=== PATIENT | male | born 1995 | race Asian ===

== ENCOUNTER 2019-01-03 20:45 | Emergency (ER) | payer OTHER ==
[~2019-01-03] VITALS: Ht 167.6 cm; Wt 81.8 kg
[2019-01-03] MEDS ORDERED: CYCLOBENZAPRINE 10 MG TAB PO ONE (22:15)
[2019-01-03] MEDS ORDERED: ACETAMINOPHEN TAB 650MG DOSE (2X325MG) PO ONE (22:15)
[2019-01-03] MEDS ORDERED: oxyCODONE 5MG TAB PO ONE (23:15)
--- NOTE | 2019-01-03 23:16 | REPVR ---
EXAM: US Duplex Left Lower Extremity Veins, Limited EXAM DATE/TIME: 01/03/2019 10:51 PM CLINICAL HISTORY: 23 years old, male; Pain; Leg, upper and leg, lower; Left; Additional info: Lle pain TECHNIQUE: Imaging protocol: Real-time Duplex ultrasound of the Left Lower Extremity with 2-D lala scale, color Doppler flow and spectral waveform analysis. Limited exam focused on the left lower extremity veins. COMPARISON: No relevant prior studies available. FINDINGS: Left deep veins: Unremarkable. The common femoral, femoral, proximal profunda femoral and popliteal veins are patent without thrombus. Normal Doppler waveforms. Normal compressibility and/or augmentation response. Soft tissues: Unremarkable. IMPRESSION: No acute findings. No evidence of deep vein thrombosis. Electronically signed by: Chapincito Schulte On 01/03/2019 23:16:32 PM
[2019-01-04] MEDS ORDERED: CYCL5TAB PO (00:01)
[2019-01-04] MEDS ORDERED: IBUP80TA PO (00:01)
[2019-01-04 00:54] VITALS: BP 162/84
[2019-01-05] MEDS ORDERED: MEDR4TAB PO (19:43)
== END 2019-01-04 00:55 | disposition home or self-care (01) ==
LOC: M ED 20:45
DX: M62.830 Muscle spasm of back (principal); M79.605 Pain in left leg; I10 Essential (primary) hypertension; J45.909 Unspecified asthma, uncomplicated

== ENCOUNTER 2019-01-05 16:22 | Emergency (ER) | payer OTHER ==
[~2019-01-05] VITALS: Ht 167.6 cm; Wt 81.8 kg
[~2019-01-05 16:22] MED LIST: CYCL5TAB PO; IBUP80TA PO
[2019-01-05 17:09] LABS: HEMATOCRIT 47.1 % (42.0-52.0); HEMOGLOBIN 15.7 g/dl (13.5-17.5); MEAN CORPUSCULAR HEMOGLOBIN 29.2 pg (27.0-33.0); MEAN CORPUSCULAR HGB CONC 33.3 g/dl (32.0-36.5); MEAN CORPUSCULAR VOLUME 87.7 fl (80.0-96.0); PLATELET COUNT, AUTOMATED 254 10^3/uL (150-450); RED BLOOD COUNT 5.37 10^6/uL (4.30-6.10); WHITE BLOOD COUNT 9.6 10^3/uL (4.0-10.0)
[2019-01-05 17:29] LABS: BLOOD UREA NITROGEN 11 MG/DL (7-18); CALCIUM LEVEL 8.9 MG/DL (8.5-10.1); CARBON DIOXIDE LEVEL 29 MEQ/L (21-32); CHLORIDE LEVEL 107 MEQ/L (98-107); CREATININE FOR GFR 0.85 MG/DL (0.70-1.30); GLOMERULAR FILTRATION RATE > 60.0 (>60); GLUCOSE, FASTING 85 MG/DL (70-100); NT-PRO BNP 7 PG/ML (<125); POTASSIUM SERUM 4.5 MEQ/L (3.5-5.1); SODIUM LEVEL 143 MEQ/L (136-145)
[2019-01-05] MEDS ORDERED: ISOVUE-370 76% 100ML VIAL (Q9967) As Ordered ONE (17:37)
--- NOTE | 2019-01-05 18:02 | REP ---
Clinical: Acute chest pain and cough . Technique: Axial contrast enhanced images from the thoracic inlet to the upper abdomen using 100 ml Isovue 370 intravenous contrast material with coronal and sagittal re-formations. Findings: Satisfactory enhancement of the pulmonary vasculature is achieved and no filling defects are identified to suggest pulmonary embolus. Thoracic aorta is normal caliber without aneurysm or dissection. Heart and pericardium are normal. Bilateral lung dee are well aerated and clear without acute pulmonary parenchymal consolidation or atelectasis. No nodule or mass lesion. No pleural effusion/reaction. No pneumothorax. No adenopathy. Impression: Normal noncontrast head CT. No evidence for acute intracranial pathology or trauma/injury. Electronically Signed by Brandyn Saleh MD 01/05/2019 05:53 P
[2019-01-05 18:33] LABS: CPK CREATINE PHOSPHOKINASE 229 U/L (39-308); MB/CK RELATIVE INDEX 0.57 (< OR =4); TROPONIN I < 0.02 NG/ML (< 0.10)
[2019-01-05] MEDS ORDERED: MEDR4TAB PO (19:43)
[2019-01-05] MEDS ORDERED: methylPREDNISolone SUSP 40 MG/ML (DEPO-medrol) VIAL (J1030) IM ONE (19:45)
--- NOTE | 2019-01-05 20:05 | ECGEPIP ---
[facility] - ED Test Date: 2019-01-05 Pat Name: YUVAL JERONIMO Department: Room: - Gender: Male [employer]: pretty : 1995 Requested By: REGINE Luu Order Number: [id number] Reading MD: Manoj Yusuf Measurements Intervals [place] Rate: 71 P: 62 OK: 171 QRS: 57 QRSD: 89 T: 33 QT: 368 QTc: 401 Interpretive Statements SINUS RHYTHM ST ELEVATION, PROBABLY EARLY REPOLARIZATION Electronically Signed on 01-05-2019 20:04:57 EDT by Manoj Yusuf
[2019-01-05 20:15] VITALS: BP 134/70
[2019-01-06] MEDS ORDERED: ALBU17IN2 INH (11:39)
== END 2019-01-05 20:17 | disposition home or self-care (01) ==
LOC: M ED 16:22 → EDBD 16:22 → M ED 20:17
DX: R06.02 Shortness of breath (principal); R05 Cough; M54.32 Sciatica, left side; R94.31 Abnormal electrocardiogram [ECG] [EKG]; Z87.09 Personal history of other diseases of the respiratory system; Z79.899 Other long term (current) drug therapy
CPT/HCPCS: 71275; 80048; 82550; 82553; 83880; 84484; 85027; 93005; 96372; 99284; J1030; Q9967

== ENCOUNTER 2019-01-06 10:07 | Emergency (ER) | payer OTHER ==
[~2019-01-06] VITALS: Ht 167.6 cm; Wt 82.7 kg
[~2019-01-06 10:07] MED LIST changes: +MEDR4TAB PO
[2019-01-06] MEDS ORDERED: ALBU17IN2 INH (11:39)
[2019-01-06 11:53] VITALS: BP 167/96
== END 2019-01-06 12:00 | disposition home or self-care (01) ==
LOC: M ED 10:07
DX: M54.42 Lumbago with sciatica, left side (principal); M62.830 Muscle spasm of back; Z79.899 Other long term (current) drug therapy

== ENCOUNTER → 2019-02-08 | Outpatient (CLI) | payer OTHER ==
[~2019-02-08] MED LIST changes: +PROV108A INH
--- NOTE | 2019-02-08 09:04 | REP ---
Clinical: Hypertension and chronic medical renal disease. Technique: Gil scale and color Doppler evaluation of the kidneys and renal vasculature using curved array transducer. Findings: The kidneys are essentially normal in contour size and echogenicity and reniform shape without hydronephrosis, nephrolithiasis, cystic or renal mass lesion. Right kidney measures 11.3 x 5.9 x 5.5 cm. Left kidney measures 11.3 x 4.8 x 5.8 cm. Bladder is incompletely distended and grossly normal by current evaluation. Color Doppler evaluation of the renal vasculature demonstrates normal arterial wave patterns, velocities, renal aortic ratios, resistive indices and the acceleration time. No sonographic evidence for renal arterial stenosis noted. Renal vein is patent. Right Kidney: Peak arterial velocity: 192 cm/s. Renal aortic ratio: 1.3. Resistive indices: 0.51 - 0.64. Acceleration times: 0.04. Left kidney: Peak arterial velocity: 114 cm/s. Renal aortic ratio: 0.8. Resistive indices: 0.62 - 0.68. Acceleration times: 0.03 - 0.04. Impression: Normal examination. Normal appearance to the kidneys. No evidence for renal arterial stenosis. Electronically Signed by Brandyn Saleh MD 02/08/2019 08:56 A
== END ==
LOC: M RAD 07:31
PROVIDERS: ATTEND Advanced Practice Midwife
DX: I10 Essential (primary) hypertension (principal)

== ENCOUNTER 2019-08-29 16:02 | Emergency (ER) | payer OTHER ==
[~2019-08-29] VITALS: Ht 167.6 cm; Wt 87.1 kg
[2019-08-29] MEDS ORDERED: AMLO25TA PO (16:08)
[2019-08-29] MEDS ORDERED: LOSA100T50 PO (16:08)
--- NOTE | 2019-08-29 16:58 | REP ---
Right foot series: Four views. History: Injury playing basketball. No comparison views. Findings: Four views right foot demonstrate overall normal mineralization. No fracture is seen. No subluxation noted. Impression: Negative right foot radiographs. Electronically Signed by Bill Simmons MD 08/29/2019 04:50 P
[2019-08-29 17:37] VITALS: BP 145/82
== END 2019-08-29 17:38 | disposition home or self-care (01) ==
LOC: M ED 16:02
DX: S93.601A Unspecified sprain of right foot, initial encounter (principal); X50.1XXA Overexertion from prolonged static or awkward postures, initial encounter; Y92.830 Public park as the place of occurrence of the external cause; Y93.67 Activity, basketball; I10 Essential (primary) hypertension; Z79.899 Other long term (current) drug therapy